=== PATIENT | male | born 1945 | race Caucasian/White ===

== ENCOUNTER 2018-06-14 13:23 | Emergency (ER) | payer MEDICARE, OTHER, SELFPAY ==
[2018-06-14 13:27] VITALS: BP 151/80; PULSE 64; RESP 16; TEMP 36.4; O2SAT 97; BMI 38.2
--- NOTE | 2018-06-14 15:54 | ED.SKABFB ---
HPI - Skin/Abscess/Foreign Bdy <ABDULKADIR Merchant - Last Filed: 06/14/18 22:09> General Chief complaint: Skin/Abscess/Foreign Body Stated complaint: STUNG RT HAND,SWELLING Time Seen by Provider: 06/14/18 16:06 Source: patient Mode of arrival: ambulatory Limitations: no limitations History of Present Illness HPI narrative: 73-year-old male here for complaint of swelling to his right hand. He states that he was stung by a wasp yesterday and has had increased swelling today. He states that after he was moving furniture today he noticed swelling to the right hand. He denies any other trauma to the right hand. No shortness of breath. No tightness of his throat. He denies any other injuries or concerns at this point. He denies any numbness to his fingers he states he has full range of motion of his fingers in hand. complaint: insect bite/sting Related Data Home Medications Medication Instructions Recorded Confirmed amlodipine 10 mg PO DAILY 06/14/18 06/14/18 furosemide 20 mg PO DAILY 06/14/18 06/14/18 insulin glargine [Lantus Solostar 1 dose SUB-Q DIRECTED 06/14/18 06/14/18 U-100 Insulin] losartan 100 mg PO DAILY 06/14/18 06/14/18 metformin 1 tab PO BID 06/14/18 06/14/18 metoprolol succinate [Toprol XL] 1 tab PO DAILY 06/14/18 06/14/18 potassium chloride [Klor-Con M20] 20 meq PO DAILY 06/14/18 06/14/18 pravastatin 20 mg PO DAILY 06/14/18 06/14/18 sildenafil [Viagra] 1 tab PO PRN PRN 06/14/18 06/14/18 Allergies Allergy/AdvReac Type Severity Reaction Status Date / Time influenza virus vaccine, Allergy Severe COUGHING, Unverified 02/20/18 12:29 specific FEVER 105+ [INFLUENZA VIRUS PER PATIENT VACC,SPECIFIC] Review of Systems <ABDULKADIR Merchant - Last Filed: 06/14/18 22:09> Constitutional Denies chills, Denies fever(s), Denies lethargy and Denies weakness Eyes Denies change in vision, Denies eye discharge, Denies irritation and Denies loss of vision ENT Ears, Nose, Mouth, and Throat: Denies change in voice, Denies neck pain and Denies sore throat Cardiovascular Denies chest pain, Denies irregular heart rhythm, Denies lightheadedness, Denies palpitations, Denies dyspnea, Denies dyspnea on exertion and Denies orthopnea Respiratory Denies cough, Denies dyspnea, Denies dyspnea on exertion and Denies wheezing Gastrointestinal Gastrointestinal: Denies abdominal pain, Denies change in bowel habits, Denies diarrhea, Denies nausea and Denies vomiting Genitourinary Denies hematuria, Denies flank pain, Denies urinary incontinence and Denies urinary urgency Musculoskeletal Denies neck pain Comments: Swelling to right hand status post insect sting Integumentary/Breasts Denies pruritus, Denies erythema, Denies rash and Denies wounds Neurologic Denies confusion, Denies loss of vision and Denies weakness Psychiatric Denies anxiety, Denies confusion, Denies depression, Denies homicidal ideation and Denies suicidal ideation Endocrine Denies palpitations Hematologic/Lymphatic Denies easy bruising Allergic/Immunologic Denies wheezing Exam <ABDULKADIR Merchant - Last Filed: 06/14/18 22:09> Initial Vital Signs Initial Vital Signs: Vital Signs Temperature 97.6 F 06/14/18 13:27 Pulse Rate 64 06/14/18 13:27 Respiratory Rate 16 06/14/18 13:27 Blood Pressure 151/80 H 06/14/18 13:27 Pulse Oximetry 97 06/14/18 13:27 Const General: cooperative and well developed Nutritional Appearance: well nourished Orientation: alert, awake, oriented x3 and not confused [facility] Mouth: oral mucosae normal and moist mucous membranes Eyes General: appearance normal, both eyes and all related structures Eyelids: eyelids normal Conjunctivae: conjunctivae normal Sclera: sclerae normal Pupils: PERRL EOM: EOM intact bilaterally Resp Effort & Inspection: normal respiratory effort, able to speak in complete sentences, no respiratory distress and no use of accessory muscles Auscultation: clear to auscultation bilaterally, no rales, no rhonchi and no wheezes Cardio Rate: regular rate Rhythm: regular rhythm Heart Sounds: no click, no gallops, no murmurs and no rubs Pulses: normal peripheral pulses Skin General: no rashes or lesions noted, No jaundice and No petechiae Neuro General: alert, oriented x3, gait normal and no focal motor deficits Speech: speech normal Extrem Other: Swelling into the right hand. No open lesions seen. No ecchymosis. Distal sensation is intact. Distal range of motion is intact. Distal cap refill less than 2 sec. Distal pulses intact <Hussein Hernandez MD - Last Filed: 06/17/18 08:38> Initial Vital Signs Initial Vital Signs: Vital Signs Temperature 97.6 F 06/14/18 13:27 Pulse Rate 64 06/14/18 13:27 Respiratory Rate 16 06/14/18 13:27 Blood Pressure 151/80 H 06/14/18 13:27 Pulse Oximetry 97 06/14/18 13:27 Course <ABDULKADIR Merchant - Last Filed: 06/14/18 22:09> Vital Signs - 8 hr 06/14/18 16:22 Pulse Rate 77 Respiratory Rate 14 Blood Pressure 147/71 H Pulse Oximetry 99 <Hussein Hernandez MD - Last Filed: 06/17/18 08:38> Vital Signs - 8 hr 06/14/18 16:22 Pulse Rate 77 Respiratory Rate 14 Blood Pressure 147/71 H Pulse Oximetry 99 MDM - Skin/Abscess/Foreign Bdy <ABDULKADIR Merchant - Last Filed: 06/14/18 22:09> MDM Narrative Medical decision making narrative: Swelling into the right hand secondary to insect sting toxins. Jose Miguel wrap to right hand for compression to help with swelling. Antihistamine daily patient states that he will black pickler 2nd generation sofu-lxh-txlyfao antihistamine such as Trisha or Claritin. [id number]-[id number] Aleve for anti-inflammatory and discomfort patient has at home. Patient is also encouraged to elevate the right hand to help with swelling. Follow up with primary care provider next week for re-evaluation. For any worsening symptoms return to the emergency room. Discharge Plan Departure Patient Disposition: Home, Self-Care Clinical Impression: Swelling of right hand, Accidental wasp sting Discharge Date/Time: 06/14/18 16:24 Interventions: ED Discharge Assessment Last Done: 06/14/18 16:22 Instructions: DI for Insect Bites and Stings Activity Restrictions/Additional Instructions: Swelling into the right hand secondary to insect sting toxins. Jose Miguel wrap to right hand for compression to help with swelling. Use antihistamine over the next several days daily as per instructions, black pickler 2nd generation [id number]-ubsdrno antihistamine such as Trisha or Claritin. Dkhm-uxe-liotjoh Aleve for anti-inflammatory and discomfort patient has at home. Elevate the right hand to help with swelling. Follow up with primary care provider next week for re-evaluation. For any worsening symptoms return to the emergency room. Prescriptions: No Action metoprolol succinate [Toprol XL] 100 mg tablet extended release 24 hr 1 tab PO DAILY RF: 0 metformin 850 mg tablet 1 tab PO BID RF: 0 sildenafil [Viagra] 25 mg tablet 1 tab PO PRN PRN (Reason: Sexual Activity) RF: 0 potassium chloride [Klor-Con M20] 20 mEq tablet,ER particles/crystals 20 meq PO DAILY RF: 0 amlodipine 10 mg tablet 10 mg PO DAILY RF: 0 pravastatin 20 mg tablet 20 mg PO DAILY RF: 0 furosemide 20 mg tablet 20 mg PO DAILY RF: 0 losartan 100 mg tablet 100 mg PO DAILY RF: 0 insulin glargine [Lantus Solostar U-100 Insulin] 100 unit/mL (3 mL) insulin pen 1 dose Sub-Q DIRECTED RF: 0 Referrals: Leatha Pinto MD [Primary Care Provider] - <Hussein Hernandez MD - Last Filed: 06/17/18 08:38> Sign Out Provider Sign Out Attestation: The PA/PATHOLOGY SUPERVISOR functioned independently for the care of this pt, I was available, but not asked to participate in care. I am unable to determine appropriateness of management without personally examining the pt.
--- NOTE | 2018-06-14 16:06 | ED_ITS ---
HPI - Skin/Abscess/Foreign Bdy <ABDULKADIR Merchant - Last Filed: 06/14/18 22:09> General Chief complaint: Skin/Abscess/Foreign Body Stated complaint: STUNG RT HAND,SWELLING Time Seen by Provider: 06/14/18 16:06 Source: patient Mode of arrival: ambulatory Limitations: no limitations History of Present Illness HPI narrative: 73-year-old male here for complaint of swelling to his right hand. He states that he was stung by a wasp yesterday and has had increased swelling today. He states that after he was moving furniture today he noticed swelling to the right hand. He denies any other trauma to the right hand. No shortness of breath. No tightness of his throat. He denies any other injuries or concerns at this point. He denies any numbness to his fingers he states he has full range of motion of his fingers in hand. complaint: insect bite/sting Related Data Home Medications Medication Instructions Recorded Confirmed amlodipine 10 mg PO DAILY 06/14/18 06/14/18 furosemide 20 mg PO DAILY 06/14/18 06/14/18 insulin glargine [Lantus Solostar 1 dose SUB-Q DIRECTED 06/14/18 06/14/18 U-100 Insulin] losartan 100 mg PO DAILY 06/14/18 06/14/18 metformin 1 tab PO BID 06/14/18 06/14/18 metoprolol succinate [Toprol XL] 1 tab PO DAILY 06/14/18 06/14/18 potassium chloride [Klor-Con M20] 20 meq PO DAILY 06/14/18 06/14/18 pravastatin 20 mg PO DAILY 06/14/18 06/14/18 sildenafil [Viagra] 1 tab PO PRN PRN 06/14/18 06/14/18 Allergies Allergy/AdvReac Type Severity Reaction Status Date / Time influenza virus vaccine, Allergy Severe COUGHING, Unverified 02/20/18 12:29 specific FEVER 105+ [INFLUENZA VIRUS PER PATIENT VACC,SPECIFIC] Review of Systems <ABDULKADIR Merchant - Last Filed: 06/14/18 22:09> Constitutional Denies chills, Denies fever(s), Denies lethargy and Denies weakness Eyes Denies change in vision, Denies eye discharge, Denies irritation and Denies loss of vision ENT Ears, Nose, Mouth, and Throat: Denies change in voice, Denies neck pain and Denies sore throat Cardiovascular Denies chest pain, Denies irregular heart rhythm, Denies lightheadedness, Denies palpitations, Denies dyspnea, Denies dyspnea on exertion and Denies orthopnea Respiratory Denies cough, Denies dyspnea, Denies dyspnea on exertion and Denies wheezing Gastrointestinal Gastrointestinal: Denies abdominal pain, Denies change in bowel habits, Denies diarrhea, Denies nausea and Denies vomiting Genitourinary Denies hematuria, Denies flank pain, Denies urinary incontinence and Denies urinary urgency Musculoskeletal Denies neck pain Comments: Swelling to right hand status post insect sting Integumentary/Breasts Denies pruritus, Denies erythema, Denies rash and Denies wounds Neurologic Denies confusion, Denies loss of vision and Denies weakness Psychiatric Denies anxiety, Denies confusion, Denies depression, Denies homicidal ideation and Denies suicidal ideation Endocrine Denies palpitations Hematologic/Lymphatic Denies easy bruising Allergic/Immunologic Denies wheezing Exam <ABDULKADIR Merchant - Last Filed: 06/14/18 22:09> Initial Vital Signs Initial Vital Signs: Vital Signs Temperature 97.6 F 06/14/18 13:27 Pulse Rate 64 06/14/18 13:27 Respiratory Rate 16 06/14/18 13:27 Blood Pressure 151/80 H 06/14/18 13:27 Pulse Oximetry 97 06/14/18 13:27 Const General: cooperative and well developed Nutritional Appearance: well nourished Orientation: alert, awake, oriented x3 and not confused [facility] Mouth: oral mucosae normal and moist mucous membranes Eyes General: appearance normal, both eyes and all related structures Eyelids: eyelids normal Conjunctivae: conjunctivae normal Sclera: sclerae normal Pupils: PERRL EOM: EOM intact bilaterally Resp Effort & Inspection: normal respiratory effort, able to speak in complete sentences, no respiratory distress and no use of accessory muscles Auscultation: clear to auscultation bilaterally, no rales, no rhonchi and no wheezes Cardio Rate: regular rate Rhythm: regular rhythm Heart Sounds: no click, no gallops, no murmurs and no rubs Pulses: normal peripheral pulses Skin General: no rashes or lesions noted, No jaundice and No petechiae Neuro General: alert, oriented x3, gait normal and no focal motor deficits Speech: speech normal Extrem Other: Swelling into the right hand. No open lesions seen. No ecchymosis. Distal sensation is intact. Distal range of motion is intact. Distal cap refill less than 2 sec. Distal pulses intact <Hussein Hernandez MD - Last Filed: 06/17/18 08:38> Initial Vital Signs Initial Vital Signs: Vital Signs Temperature 97.6 F 06/14/18 13:27 Pulse Rate 64 06/14/18 13:27 Respiratory Rate 16 06/14/18 13:27 Blood Pressure 151/80 H 06/14/18 13:27 Pulse Oximetry 97 06/14/18 13:27 Course <ABDULKADIR Merchant - Last Filed: 06/14/18 22:09> Vital Signs - 8 hr 06/14/18 16:22 Pulse Rate 77 Respiratory Rate 14 Blood Pressure 147/71 H Pulse Oximetry 99 <Hussein Hernandez MD - Last Filed: 06/17/18 08:38> Vital Signs - 8 hr 06/14/18 16:22 Pulse Rate 77 Respiratory Rate 14 Blood Pressure 147/71 H Pulse Oximetry 99 MDM - Skin/Abscess/Foreign Bdy <ABDULKADIR Merchant - Last Filed: 06/14/18 22:09> MDM Narrative Medical decision making narrative: Swelling into the right hand secondary to insect sting toxins. Jose Miguel wrap to right hand for compression to help with swelling. Antihistamine daily patient states that he will director of academic support 2nd generation ufhv-ohj-mpydpey antihistamine such as Trisha or Claritin. Over-the -counter Aleve for anti-inflammatory and discomfort patient has at home. Patient is also encouraged to elevate the right hand to help with swelling. Follow up with primary care provider next week for re-evaluation. For any worsening symptoms return to the emergency room. Discharge Plan Departure Patient Disposition: Home, Self-Care Clinical Impression: Swelling of right hand, Accidental wasp sting Discharge Date/Time: 06/14/18 16:24 Interventions: ED Discharge Assessment Last Done: 06/14/18 16:22 Instructions: DI for Insect Bites and Stings Activity Restrictions/Additional Instructions: Swelling into the right hand secondary to insect sting toxins. Jose Miguel wrap to right hand for compression to help with swelling. Use antihistamine over the next several days daily as per instructions, director of academic support 2nd generation over-the- counter antihistamine such as Trisha or Claritin. [id number]-gjp-[id number] Aleve for anti-inflammatory and discomfort patient has at home. Elevate the right hand to help with swelling. Follow up with primary care provider next week for re- evaluation. For any worsening symptoms return to the emergency room. Prescriptions: No Action metoprolol succinate [Toprol XL] 100 mg tablet extended release 24 hr 1 tab PO DAILY RF: 0 metformin 850 mg tablet 1 tab PO BID RF: 0 sildenafil [Viagra] 25 mg tablet 1 tab PO PRN PRN (Reason: Sexual Activity) RF: 0 potassium chloride [Klor-Con M20] 20 mEq tablet,ER particles/crystals 20 meq PO DAILY RF: 0 amlodipine 10 mg tablet 10 mg PO DAILY RF: 0 pravastatin 20 mg tablet 20 mg PO DAILY RF: 0 furosemide 20 mg tablet 20 mg PO DAILY RF: 0 losartan 100 mg tablet 100 mg PO DAILY RF: 0 insulin glargine [Lantus Solostar U-100 Insulin] 100 unit/mL (3 mL) insulin pen 1 dose Sub-Q DIRECTED RF: 0 Referrals: Leatha Pinto MD [Primary Care Provider] - <Hussein Hernandez MD - Last Filed: 06/17/18 08:38> Sign Out Provider Sign Out Attestation: The PA/POWER GENERATING PLANT OPERATOR functioned independently for the care of this pt, I was available, but not asked to participate in care. I am unable to determine appropriateness of management without personally examining the pt.
[2018-06-14 16:22] VITALS: BP 147/71; PULSE 77; RESP 14; O2SAT 99
--- NOTE | 2018-06-14 16:23 | PC.NURSE ---
pt c/o insect bite to hand. hand red and swollen, painful to touch. moving without difficulty.
== END 2018-06-14 16:24 | disposition home or self-care (01) ==
PROVIDERS: Emergency Provider Nurse Practitioner Family; Family Provider Internal Medicine; PCP Internal Medicine
DX: M79.89 Other specified soft tissue disorders (principal); T63.461A Toxic effect of venom of wasps, accidental (unintentional), initial encounter
CPT/HCPCS: 99282

== ENCOUNTER → 2018-09-25 14:20 | Outpatient (CLI) | payer MEDICARE, OTHER, SELFPAY | PROVIDERS: PCP Internal Medicine; Visit Provider Internal Medicine Gastroenterology | DX: R19.7 Diarrhea, unspecified (principal) | CPT/HCPCS: 87177; 87493 ==

== ENCOUNTER → 2018-12-26 07:59 | Outpatient (CLI) | payer MEDICARE, OTHER, SELFPAY ==
[2018-12-26 08:42] LABS: Hemoglobin A1C% w Est Avg Glu 5.9 % (4.0-6.0)
[2018-12-26 09:32] LABS: Alanine Aminotransferase 69 IU/L (21-72); Aspartate Aminotransferase 52 IU/L (17-59); BUN Creatinine Ratio 22.2 (6-22); Blood Urea Nitrogen 20 mg/dL (9-20); Calcium 9.5 mg/dL (8.4-10.2); Carbon Dioxide 29 mmol/L (22-32); Chloride 103 mmol/L (98-107); Cholesterol 151 mg/dL (140-199); Estimated Glomerular Filt Rate > 60.0 mL/min (>60); Glucose 110 mg/dL (80-110); HDL Cholesterol 40 mg/dL (40-60); HEMOLYSIS < 15 (0-50); LDL Cholesterol Calculated 77 mg/dL (<100); Potassium 4.5 mmol/L (3.4-5.1); Sodium 143 mmol/L (137-145); Triglycerides 172 mg/dL (35-150)
== END ==
PROVIDERS: PCP Internal Medicine; Visit Provider Internal Medicine
DX: I10 Essential (primary) hypertension (principal); E78.00 Pure hypercholesterolemia, unspecified; E11.9 Type 2 diabetes mellitus without complications
CPT/HCPCS: 36415; 80048; 80061; 83036; 84450; 84460

== ENCOUNTER → 2019-08-07 07:41 | Outpatient (CLI) | payer MEDICARE, OTHER, SELFPAY ==
[2019-08-07 09:18] LABS: Hemoglobin A1C% w Est Avg Glu 5.9 % (4.0-6.0)
[2019-08-07 09:27] LABS: Alanine Aminotransferase 59 IU/L (21-72); Aspartate Aminotransferase 61 IU/L (17-59); Blood Urea Nitrogen 14 mg/dL (9-20); Calcium 9.3 mg/dL (8.4-10.2); Carbon Dioxide 27 mmol/L (22-32); Chloride 106 mmol/L (98-107); Cholesterol 148 mg/dL (140-199); Estimated Glomerular Filt Rate > 60.0 mL/min (>60); Glucose 101 mg/dL (80-110); HDL Cholesterol 40 mg/dL (40-60); HEMOLYSIS < 15 (0-50); LDL Cholesterol Calculated 71 mg/dL (<100); Potassium 3.9 mmol/L (3.4-5.1); Sodium 144 mmol/L (137-145); Triglycerides 184 mg/dL (35-150)
== END ==
PROVIDERS: PCP Internal Medicine; Visit Provider Internal Medicine
DX: I10 Essential (primary) hypertension (principal); E78.5 Hyperlipidemia, unspecified; E11.9 Type 2 diabetes mellitus without complications
CPT/HCPCS: 36415; 80048; 80061; 83036; 84450; 84460

== ENCOUNTER → 2020-07-09 09:05 | Outpatient (CLI) | payer MEDICARE, OTHER, SELFPAY ==
[2020-07-09 10:15] LABS: Hemoglobin A1C% w Est Avg Glu 6.9 % (4.0-6.0)
[2020-07-09 10:25] LABS: Alanine Aminotransferase 53 IU/L (<50); Albumin 4.4 g/dL (3.5-5.0); Albumin Globulin Ratio 1.4 (1.0-2.8); Alkaline Phosphatase 80 U/L (38-126); Aspartate Aminotransferase 50 IU/L (17-59); Bilirubin Total 0.7 mg/dL (0.2-1.3); Blood Urea Nitrogen 17 mg/dL (9-20); Calcium 9.3 mg/dL (8.4-10.2); Carbon Dioxide 22 mmol/L (22-32); Chloride 109 mmol/L (98-107); Cholesterol 160 mg/dL (140-199); Estimated Glomerular Filt Rate > 60.0 mL/min (>60); Globulin 3.1 g/dL (1.7-4.1); Glucose 147 mg/dL (80-110); HDL Cholesterol 42 mg/dL (40-60); HEMOLYSIS < 15 (0-50); LDL Cholesterol Calculated 77 mg/dL (<100); Potassium 4.1 mmol/L (3.4-5.1); Sodium 140 mmol/L (137-145); Total Protein 7.5 g/dL (6.3-8.2); Triglycerides 205 mg/dL (35-150)
== END ==
PROVIDERS: PCP Internal Medicine; Referring Provider Internal Medicine; Visit Provider Internal Medicine
DX: E78.00 Pure hypercholesterolemia, unspecified (principal); I10 Essential (primary) hypertension; E11.9 Type 2 diabetes mellitus without complications
CPT/HCPCS: 36415; 80053; 80061; 83036

== ENCOUNTER → 2020-12-20 08:36 | Outpatient (CLI) | payer MEDICARE, OTHER, SELFPAY ==
[2020-12-20 09:40] LABS: Hemoglobin A1C% w Est Avg Glu 7.5 % (4.0-6.0)
[2020-12-20 09:57] LABS: Alanine Aminotransferase 64 IU/L (<50); Albumin 4.5 g/dL (3.5-5.0); Albumin Globulin Ratio 1.3 (1.0-2.8); Alkaline Phosphatase 81 U/L (38-126); Aspartate Aminotransferase 61 IU/L (17-59); BUN Creatinine Ratio 18.2 (6-22); Bilirubin Total 0.5 mg/dL (0.2-1.3); Blood Urea Nitrogen 14 mg/dL (9-20); Calcium 9.2 mg/dL (8.4-10.2); Carbon Dioxide 29 mmol/L (22-32); Chloride 107 mmol/L (98-107); Cholesterol 150 mg/dL (140-199); Estimated Glomerular Filt Rate > 60.0 mL/min (>60); Globulin 3.6 g/dL (1.7-4.1); Glucose 145 mg/dL (80-110); HDL Cholesterol 42 mg/dL (40-60); HEMOLYSIS < 15 (0-50); LDL Cholesterol Calculated 77 mg/dL (<100); Sodium 141 mmol/L (137-145); Total Protein 8.1 g/dL (6.3-8.2); Triglycerides 156 mg/dL (35-150)
[2020-12-20 11:50] LABS: Creatinine Urine Random 69.4 mg/dL
[2020-12-20 11:54] LABS: Microalbumi Creatinin Ratio Ur 69.1 ug/mg CR (<30); Microalbumin Urine Random 4.8 mg/dL (0-1.6)
== END ==
PROVIDERS: PCP Internal Medicine; Referring Provider Internal Medicine; Visit Provider Internal Medicine
DX: I10 Essential (primary) hypertension (principal); E78.00 Pure hypercholesterolemia, unspecified; E11.9 Type 2 diabetes mellitus without complications
CPT/HCPCS: 36415; 80053; 80061; 82043; 82570; 83036

== ENCOUNTER 2021-07-22 18:57 | Emergency (ER) | payer MEDICARE, OTHER, SELFPAY ==
[2021-07-22 19:08] VITALS: BP 179/85; PULSE 69; RESP 18; TEMP 37.1; O2SAT 96; BMI 38.2
--- NOTE | 2021-07-22 19:41 | ED.WOUNDLAC ---
HPI - Wound/Laceration <ABDULKADIR Lyn - Last Filed: 07/22/21 19:54> General Chief Complaint: Wound/Laceration Stated Complaint: Left Pointer Finger Laceration, On Blood Thinners Time Seen by Provider: 07/22/21 19:05 Source: patient Mode of arrival: Ambulatory Limitations: no limitations History of Present Illness HPI narrative: Mr. Holbrook is a 76-year-old male who presents to the emergency department with a left finger laceration that occurred while pruning a tree. He reports that his put a pressure dressing on his finger because it would not stop bleeding. He reports that the network control supervisor skipped his nail and avulsed the skin right below it, and he does not think it is very deep. He is not on any anticoagulants, he only takes a baby aspirin. He is able to move his finger, he denies any sensation changes. Related Data Home Medications Medication Instructions Recorded Confirmed amlodipine 10 mg tablet 10 mg PO DAILY 06/14/18 06/14/18 furosemide 20 mg tablet 20 mg PO DAILY 06/14/18 06/14/18 insulin glargine 100 unit/mL (3 1 dose SUB-Q DIRECTED 06/14/18 06/14/18 mL) subcutaneous pen losartan 100 mg tablet 100 mg PO DAILY 06/14/18 06/14/18 metformin 850 mg tablet 1 tab PO BID 06/14/18 06/14/18 metoprolol succinate 100 mg 1 tab PO DAILY 06/14/18 06/14/18 tablet,extended release 24 hr potassium chloride 20 mEq 20 meq PO DAILY 06/14/18 06/14/18 tablet,extended release(part/cryst) pravastatin 20 mg tablet 20 mg PO DAILY 06/14/18 06/14/18 sildenafil 25 mg tablet 1 tab PO PRN PRN 06/14/18 06/14/18 Allergies Allergy/AdvReac Type Severity Reaction Status Date / Time influenza virus vaccine, Allergy Severe COUGHING, Verified 07/22/21 19:08 specific FEVER 105+ [INFLUENZA VIRUS PER PATIENT VACC,SPECIFIC] Review of Systems <ABDULKADIR Lyn - Last Filed: 07/22/21 19:54> Review of Systems Narrative: General: denies fever, chills Head/Neck: denies headache, neck pain Eyes: denies visual changes, eye pain Cardio: denies chest pain, palpitations Respiratory: denies shortness of breath, cough GI: denies abdominal pain, nausea, vomiting, or diarrhea : denies dysuria, hematuria MSK: denies joint pain, muscle weakness Skin: denies rash, itching, left index finger w/laceration Neuro: denies numbness, tingling Patient History <ABDULKADIR Lyn - Last Filed: 07/22/21 19:54> Medical History COPD exacerbation Diabetes Hyperlipidemia Hypertension Social History Smoking Status: Never smoker Smoking Status: Never smoker Substance Use Type: does not use Exam <ABDULKADIR Lyn - Last Filed: 07/22/21 19:54> Narrative Exam Narrative: Independently reviewed vitals signs and nursing notes. General: Awake, alert, nontoxic, no cardiorespiratory distress Head/Neck: Atraumatic, neck full range of motion Eyes: EOMI, conjunctiva normal Nose: nares patent, no rhinorrhea Mouth/Throat: moist mucus membranes, posterior pharynx normal, no oral lesions Cardio: Regular rate and rhythm, no peripheral edema Respiratory: respirations unlabored without wheezing, stridor, or rales. No retractions. GI: Abdomen soft, nontender MSK: Moves all extremities, neurovascularly intact Skin: Normal capillary refill, no rash, left index finger with 1 cm x 2 mm avulsion, hemostasis achieved with pressure dressing, sensation and motor intact. Neuro: Normal speech and cognition, normal gait Initial Vital Signs Initial Vital Signs: Vital Signs Temperature 98.8 F 07/22/21 19:08 Pulse Rate 69 07/22/21 19:08 Respiratory Rate 18 07/22/21 19:08 Blood Pressure 179/85 H 07/22/21 19:08 Pulse Oximetry 96 07/22/21 19:08 <Elise Stark DO - Last Filed: 07/23/21 05:31> Initial Vital Signs Initial Vital Signs: Vital Signs Temperature 98.8 F 07/22/21 19:08 Pulse Rate 69 07/22/21 19:08 Respiratory Rate 18 07/22/21 19:08 Blood Pressure 179/85 H 07/22/21 19:08 Pulse Oximetry 96 07/22/21 19:08 Procedures <ABDULKADIR Lyn - Last Filed: 07/22/21 19:54> Laceration Repair Laceration 1: Site: other (index finger) Side (If applicable): left Size (cm): 1 Description: linear Depth: simple, single layer Pre-repair: wound explored and irrigated extensively Skin layer closed with: steri-strips (Hemostasis achieved prior to Steri-Strip, 1 1 cm Steri-Strip applied, wrapped with gauze and Coban. No bleeding) Course <ABDULKADIR Lyn - Last Filed: 07/22/21 19:54> Vital Signs Vital signs: Vital Signs - 8 hr 07/22/21 19:08 Temperature 98.8 F Pulse Rate 69 Respiratory Rate 18 Blood Pressure 179/85 H Pulse Oximetry 96 <Elise Stark DO - Last Filed: 07/23/21 05:31> Vital Signs Vital signs: Vital Signs - 8 hr 07/22/21 19:08 Temperature 98.8 F Pulse Rate 69 Respiratory Rate 18 Blood Pressure 179/85 H Pulse Oximetry 96 MDM - Wound/Laceration <ABDULKADIR Lyn - Last Filed: 07/22/21 19:54> [facility] Narrative Medical decision making narrative: 76-year-old male presents with left index finger skin avulsion on the dorsal aspect near the base of his nail. The wound was cleaned, hemostasis achieved, and a Steri-Strip was applied over the skin flap, wound margins approximated. Gauze and Coban was applied. Vital signs were within normal limits today. No concern for infection at this time. Patient was given instructions on wound care, and reasons to return to the emergency department. He was instructed to follow-up with his PCP or return to the ED if his finger starts bleeding again and he is unable to make it stop. Patient is appropriate and amenable to discharge home. Vital signs are stable on repeat examination is unremarkable. Patient has been informed of results. Patient has been given strict return to ER precautions for any new or worsening symptoms. Patient understands to follow up closely with outpatient providers as instructed. Patient understands plan and agrees to discharge home. All questions and concerns answered at this time. Discharge Plan Departure Patient Disposition: Home Clinical Impression: Avulsion of skin of index finger Qualifiers: Encounter type: initial encounter Qualified Code(s): S61.208A - Unspecified open wound of other finger without damage to nail, initial encounter Instructions: DI for Laceration Repair-Skin Closure Strips Activity Restrictions/Additional Instructions: *You have been diagnosed with a skin avulsion of your left index finger. Keep dressing on for the next 24 hours unless it becomes soaked with blood. If so, have Billie re-dress your finger as she did when you came in, that worked really well. I gave you enough supplies to change the dressing couple times. If it does not stop bleeding, put a pressure dressing on with the stretchy material, and come back to the emergency department or see your PCP. Keep the wound dry, put it in a plastic bag if showering, and keep it clean. I look forward to seeing you around [email or web address], thanks for all you are doing in the community. *What to do: *Please continue to take your regular medications as directed. [ ] New medication prescriptions sent to your pharmacy: [ ] [ ] New medication written as a paper prescription [x] No new medications given *Please follow up with your primary care provider in 2-3 days, call for an appointment. Let them know you were seen in the Emergency Department and that we ask that you be seen in follow up. We will electronically transmit a record of today's note if your PCP is in our system *If you do not have a primary care provider please contact the [facility] Resource line at [phone]. They will ask some questions about your medical history and help get you set up with a doctor in the community. *Return to Emergency Department if you should have any new, worsening or concerning symptoms, such as [fever greater than 101F, chills, worsening pain, persistent vomiting or other bothersome symptoms] Prescriptions: No Action metoprolol succinate [Toprol XL] 100 mg tablet extended release 24 hr 1 tab PO DAILY RF: 0 metformin 850 mg tablet 1 tab PO BID RF: 0 sildenafil [Viagra] 25 mg tablet 1 tab PO PRN PRN (Reason: Sexual Activity) RF: 0 potassium chloride [Klor-Con M20] 20 mEq tablet,ER particles/crystals 20 meq PO DAILY RF: 0 amlodipine 10 mg tablet 10 mg PO DAILY RF: 0 pravastatin 20 mg tablet 20 mg PO DAILY RF: 0 furosemide 20 mg tablet 20 mg PO DAILY RF: 0 losartan 100 mg tablet 100 mg PO DAILY RF: 0 insulin glargine [Lantus Solostar U-100 Insulin] 100 unit/mL (3 mL) insulin pen 1 dose Sub-Q DIRECTED RF: 0 Referrals: Leatha Pinto MD [Primary Care Provider] - <Elise Stark DO - Last Filed: 07/23/21 05:31> Cosign ED Attending Cosignature Attestation: I was immediately available in the department for consultation. Documentation has been reviewed. I agree with assessment and plan.
[2021-07-22 19:46] VITALS: BP 158/78; PULSE 70; RESP 16
== END 2021-07-22 19:48 | disposition home or self-care (01) ==
PROVIDERS: Emergency Provider Nurse Practitioner Critical Care Medicine; PCP Internal Medicine
DX: S61.208A Unspecified open wound of other finger without damage to nail, initial encounter (principal); W45.8XXA Other foreign body or object entering through skin, initial encounter; Z79.01 Long term (current) use of anticoagulants
CPT/HCPCS: 99281

== ENCOUNTER → 2021-10-05 09:30 | Outpatient (CLI) | payer MEDICARE, OTHER, SELFPAY ==
[2021-10-05 11:36] LABS: Hemoglobin A1C% w Est Avg Glu 6.8 % (4.0-6.0)
[2021-10-05 11:44] LABS: Alanine Aminotransferase 44 IU/L (<50); Albumin 4.7 g/dL (3.5-5.0); Albumin Globulin Ratio 1.6 (1.0-2.8); Alkaline Phosphatase 74 U/L (38-126); Aspartate Aminotransferase 49 IU/L (17-59); BUN Creatinine Ratio 17.1 (6-22); Bilirubin Total 0.9 mg/dL (0.2-1.3); Blood Urea Nitrogen 14 mg/dL (9-20); Calcium 9.4 mg/dL (8.4-10.2); Carbon Dioxide 29 mmol/L (22-32); Chloride 104 mmol/L (98-107); Cholesterol 183 mg/dL (140-199); Estimated Glomerular Filt Rate > 60.0 mL/min (>60); Glucose 127 mg/dL (80-110); HDL Cholesterol 42 mg/dL (40-60); HEMOLYSIS < 15 (0-50); LDL Cholesterol Calculated 103 mg/dL (<100); Potassium 4.1 mmol/L (3.4-5.1); Sodium 144 mmol/L (137-145); Total Protein 7.7 g/dL (6.3-8.2); Triglycerides 189 mg/dL (35-150)
[2021-10-05 12:23] LABS: Creatinine Urine Random 78.8 mg/dL
[2021-10-05 12:27] LABS: Microalbumi Creatinin Ratio Ur 44.4 ug/mg CR (<30); Microalbumin Urine Random 3.5 mg/dL (0-1.6)
[2021-10-05 19:03] LABS: Hep C Virus Ab w/Reflex Quant NEGATIVE s/c (NEGATIVE)
== END ==
PROVIDERS: PCP Internal Medicine; Referring Provider Internal Medicine; Visit Provider Internal Medicine
DX: E11.9 Type 2 diabetes mellitus without complications (principal); E11.29 Type 2 diabetes mellitus with other diabetic kidney complication; E78.5 Hyperlipidemia, unspecified; Z11.59 Encounter for screening for other viral diseases
CPT/HCPCS: 36415; 80053; 80061; 82043; 82570; 83036; 86803

== ENCOUNTER → 2022-12-06 13:36 | Outpatient (CLI) | payer MEDICARE, OTHER, SELFPAY ==
[2022-12-06 14:29] LABS: Hemoglobin A1C% w Est Avg Glu 7.3 % (4.0-6.0)
[2022-12-06 14:39] LABS: Alanine Aminotransferase 49 IU/L (<50); Albumin 4.8 g/dL (3.5-5.0); Albumin Globulin Ratio 1.3 (1.0-2.8); Alkaline Phosphatase 94 U/L (38-126); Aspartate Aminotransferase 51 IU/L (17-59); BUN Creatinine Ratio 25.3 (6-22); Bilirubin Total 0.9 mg/dL (0.2-1.3); Blood Urea Nitrogen 19 mg/dL (9-20); Calcium 9.7 mg/dL (8.4-10.2); Carbon Dioxide 27 mmol/L (22-32); Chloride 105 mmol/L (98-107); Cholesterol 188 mg/dL (140-199); Estimated Glomerular Filt Rate > 60 mL/min (>60); Globulin 3.6 g/dL (1.7-4.1); Glucose 138 mg/dL (80-110); HDL Cholesterol 43 mg/dL (40-60); HEMOLYSIS 21 (0-50); LDL Cholesterol Calculated 88 mg/dL (<100); Potassium 4.3 mmol/L (3.4-5.1); Sodium 143 mmol/L (137-145); Total Protein 8.4 g/dL (6.3-8.2); Triglycerides 287 mg/dL (35-150)
[2022-12-06 15:32] LABS: Microalbumin Urine Random 2.6 mg/dL (0-1.6)
[2022-12-06 15:36] LABS: Creatinine Urine Random 42.4 mg/dL; Microalbumi Creatinin Ratio Ur 61.3 ug/mg CR (<30)
== END ==
PROVIDERS: PCP Family Medicine; Referring Provider Family Medicine; Visit Provider Family Medicine
DX: E11.9 Type 2 diabetes mellitus without complications (principal); E78.5 Hyperlipidemia, unspecified; I10 Essential (primary) hypertension
CPT/HCPCS: 36415; 80053; 80061; 82043; 82570; 83036

== ENCOUNTER → 2023-03-01 07:31 | Outpatient (CLI) | payer MEDICARE, OTHER, SELFPAY ==
[2023-03-01 08:41] LABS: BUN Creatinine Ratio 35.2 (6-22); Blood Urea Nitrogen 31 mg/dL (9-20); Calcium 9.5 mg/dL (8.4-10.2); Carbon Dioxide 28 mmol/L (22-32); Chloride 104 mmol/L (98-107); Estimated Glomerular Filt Rate > 60 mL/min (>60); Glucose 219 mg/dL (80-110); HEMOLYSIS < 15 (0-50); Potassium 4.6 mmol/L (3.4-5.1); Sodium 141 mmol/L (137-145)
[2023-03-02 06:10] LABS: Labcorp Hemoglobin (Hb) A1c 9.3 % (4.8-5.6)
== END ==
PROVIDERS: PCP Family Medicine; Referring Provider Family Medicine; Visit Provider Family Medicine
DX: I10 Essential (primary) hypertension (principal); Z79.4 Long term (current) use of insulin; E11.9 Type 2 diabetes mellitus without complications
CPT/HCPCS: 36415; 80048; 83036

== ENCOUNTER → 2023-10-09 16:17 | Outpatient (CLI) | payer MEDICARE, OTHER, SELFPAY ==
[2023-10-09 18:29] LABS: Hemoglobin A1C% w Est Avg Glu 8.2 % (4.0-6.0)
== END ==
PROVIDERS: PCP Family Medicine; Referring Provider Family Medicine; Visit Provider Family Medicine
DX: E11.9 Type 2 diabetes mellitus without complications (principal); Z79.4 Long term (current) use of insulin
CPT/HCPCS: 36415; 83036

== ENCOUNTER → 2024-01-07 11:50 | Outpatient (CLI) | payer MEDICARE, OTHER, SELFPAY ==
[2024-01-07 13:20] LABS: Hemoglobin A1C% w Est Avg Glu 7.4 % (4.0-6.0)
[2024-01-07 13:28] LABS: Alanine Aminotransferase 43 IU/L (<50); Albumin 4.6 g/dL (3.5-5.0); Albumin Globulin Ratio 1.4 (1.0-2.8); Alkaline Phosphatase 74 U/L (38-126); Aspartate Aminotransferase 47 IU/L (17-59); BUN Creatinine Ratio 26.8 (6-22); Blood Urea Nitrogen 34 mg/dL (9-20); Calcium 10.5 mg/dL (8.4-10.2); Carbon Dioxide 28 mmol/L (22-32); Chloride 98 mmol/L (98-107); Cholesterol 140 mg/dL (140-199); Estimated Glomerular Filt Rate 58 mL/min (>60); Globulin 3.4 g/dL (1.7-4.1); Glucose 187 mg/dL (80-110); HDL Cholesterol 35 mg/dL (40-60); HEMOLYSIS < 15 (0-50); LDL Cholesterol Calculated 50 mg/dL (<100); Potassium 3.4 mmol/L (3.4-5.1); Sodium 139 mmol/L (137-145); Triglycerides 274 mg/dL (35-150)
== END ==
PROVIDERS: PCP Family Medicine; Referring Provider Family Medicine; Visit Provider Family Medicine
DX: Z00.00 Encounter for general adult medical examination without abnormal findings (principal); E11.9 Type 2 diabetes mellitus without complications; E78.5 Hyperlipidemia, unspecified; Z79.4 Long term (current) use of insulin; R80.9 Proteinuria, unspecified; E11.29 Type 2 diabetes mellitus with other diabetic kidney complication
CPT/HCPCS: 36415; 80053; 80061; 83036

== ENCOUNTER → 2024-05-29 08:30 | Outpatient (CLI) | payer MEDICARE, OTHER, SELFPAY ==
[2024-05-29 11:07] LABS: BUN Creatinine Ratio 22.9 (6-22); Blood Urea Nitrogen 25 mg/dL (9-20); Calcium 9.4 mg/dL (8.4-10.2); Carbon Dioxide 26 mmol/L (22-32); Chloride 104 mmol/L (98-107); Estimated Glomerular Filt Rate > 60 mL/min (>60); Glucose 255 mg/dL (80-110); HEMOLYSIS < 15 (0-50); Potassium 3.8 mmol/L (3.4-5.1); Sodium 140 mmol/L (137-145)
[2024-05-29 11:26] LABS: Vitamin D 25 Hydroxy (D3) 48.5 ng/mL (30.0-100.0)
[2024-05-29 12:00] LABS: Hemoglobin A1C% w Est Avg Glu 7.3 % (4.0-6.0)
[2024-05-30 09:44] LABS: Parathyroid Hormone Int 38 pg/mL (15-65)
[2024-05-30 19:08] LABS: Ionized Calcium 4.8 mg/dL (4.5-5.6)
[2024-05-30 23:08] LABS: Free Kappa Lt Chains, Serum 30.8 mg/L (3.3-19.4); Free Lambda Lt Chains,Serum 17.2 mg/L (5.7-26.3)
== END ==
PROVIDERS: PCP Family Medicine; Referring Provider Family Medicine; Visit Provider Family Medicine
DX: E11.65 Type 2 diabetes mellitus with hyperglycemia (principal); Z79.4 Long term (current) use of insulin; E83.52 Hypercalcemia
CPT/HCPCS: 80048; 82306; 82330; 83036; 83883; 83970; 84155; 84165

== ENCOUNTER → 2024-09-15 15:02 | Outpatient (CLI) | payer MEDICARE, OTHER, SELFPAY ==
[2024-09-15 16:36] LABS: Hemoglobin A1C% w Est Avg Glu 7.3 % (4.0-6.0)
[2024-09-15 17:13] LABS: BUN Creatinine Ratio 15.9 (6-22); Blood Urea Nitrogen 20 mg/dL (9-20); Calcium 9.1 mg/dL (8.4-10.2); Carbon Dioxide 26 mmol/L (22-32); Chloride 105 mmol/L (98-107); Estimated Glomerular Filt Rate 58 mL/min (>60); Glucose 170 mg/dL (80-110); HEMOLYSIS < 15 (0-50); Potassium 3.2 mmol/L (3.4-5.1); Sodium 140 mmol/L (137-145)
== END ==
PROVIDERS: PCP Family Medicine; Referring Provider Family Medicine; Visit Provider Family Medicine
DX: E11.65 Type 2 diabetes mellitus with hyperglycemia (principal); Z79.4 Long term (current) use of insulin; I10 Essential (primary) hypertension; E78.49 Other hyperlipidemia
CPT/HCPCS: 36415; 80048; 83036

== ENCOUNTER → 2024-12-29 10:06 | Outpatient (CLI) | payer MEDICARE, OTHER, SELFPAY ==
[2024-12-29 11:17] LABS: Hemoglobin A1C% w Est Avg Glu 6.9 % (4.0-6.0)
[2024-12-29 11:32] LABS: Blood Urea Nitrogen 16 mg/dL (9-20); Calcium 9.6 mg/dL (8.4-10.2); Carbon Dioxide 29 mmol/L (22-32); Chloride 104 mmol/L (98-107); Cholesterol 145 mg/dL (140-199); Estimated Glomerular Filt Rate > 60 mL/min (>60); Glucose 139 mg/dL (80-110); HDL Cholesterol 36 mg/dL (40-60); HEMOLYSIS < 15 (0-50); LDL Cholesterol Calculated 50 mg/dL (<100); Sodium 143 mmol/L (137-145); Triglycerides 295 mg/dL (35-150)
== END ==
PROVIDERS: PCP Family Medicine; Referring Provider Family Medicine; Visit Provider Family Medicine
DX: E11.65 Type 2 diabetes mellitus with hyperglycemia (principal); Z79.4 Long term (current) use of insulin; E87.6 Hypokalemia; E11.29 Type 2 diabetes mellitus with other diabetic kidney complication; E78.49 Other hyperlipidemia; R80.9 Proteinuria, unspecified
CPT/HCPCS: 36415; 80048; 80061; 83036

== ENCOUNTER → 2025-06-17 14:08 | Outpatient (CLI) | payer MEDICARE, OTHER, SELFPAY ==
[2025-06-17 14:54] LABS: Hematocrit 41.0 % (41-53); Hemoglobin 14.4 g/dL (13.5-17.5); Mean Corpuscular HGB Conc 35.3 % (30-36); Mean Corpuscular Hemoglobin 31.0 PG (26-34); Mean Corpuscular Volume 87.9 fL (80-100); Platelet Count 146 X10^3/uL (150-400)
[2025-06-17 15:13] LABS: Hemoglobin A1C% w Est Avg Glu 7.1 % (4.0-6.0)
[2025-06-17 15:23] LABS: Alanine Aminotransferase 46 IU/L (<50); Albumin 4.5 g/dL (3.5-5.0); Albumin Globulin Ratio 1.7 (1.0-2.8); Alkaline Phosphatase 76 U/L (38-126); Blood Urea Nitrogen 20 mg/dL (9-20); Calcium 9.6 mg/dL (8.4-10.2); Carbon Dioxide 28 mmol/L (22-32); Chloride 102 mmol/L (98-107); Estimated Glomerular Filt Rate > 60 mL/min (>60); Globulin 2.7 g/dL (1.7-4.1); Glucose 213 mg/dL (70-99); HEMOLYSIS < 15 (0-50); Potassium 3.8 mmol/L (3.4-5.1); Sodium 143 mmol/L (137-145); Total Protein 7.2 g/dL (6.3-8.2)
[2025-06-17 15:35] LABS: Appearance Urine UA CLEAR; Bilirubin Urine UA NEGATIVE (NEGATIVE); Color Urine UA YELLOW; Glucose Urine UA 3+ g/dL (Negative); Ketones Urine UA NEGATIVE (NEGATIVE); Leukocyte Esterase Urine UA NEGATIVE (NEGATIVE); Nitrite Urine UA NEGATIVE (Negative); Occult Blood Urine UA NEGATIVE (Negative); Protein Urine UA NEGATIVE (Negative); Specific Gravity Urine UA 1.010 (1.000-1.035); Urobilinogen Urine UA 0.2 E.U./dL (0.2); pH Urine UA 5.5 (4.5-8.0)
[2025-06-17 15:55] LABS: TSH w/ Reflex to FT4 1.64 uIU/mL (0.47-4.68)
[2025-06-17 16:07] LABS: Culture Indicated Urine Cult Not Indicated
== END ==
PROVIDERS: PCP Family Medicine; Referring Provider Family Medicine; Visit Provider Family Medicine
DX: E11.65 Type 2 diabetes mellitus with hyperglycemia (principal); Z79.4 Long term (current) use of insulin; R53.82 Chronic fatigue, unspecified; I49.9 Cardiac arrhythmia, unspecified; I10 Essential (primary) hypertension
CPT/HCPCS: 36415; 80053; 81001; 83036; 84443; 85027

== ENCOUNTER → 2025-10-30 09:38 | Outpatient (CLI) | payer MEDICARE, OTHER, SELFPAY ==
[2025-10-30 10:37] LABS: Hemoglobin A1C% w Est Avg Glu 6.9 % (4.0-6.0)
[2025-10-30 10:58] LABS: Blood Urea Nitrogen 18 mg/dL (9-20); Calcium 9.9 mg/dL (8.4-10.2); Carbon Dioxide 28 mmol/L (22-32); Chloride 103 mmol/L (98-107); Estimated Glomerular Filt Rate > 60 mL/min (>60); Glucose 230 mg/dL (70-99); HEMOLYSIS 22 (0-50); Potassium 3.9 mmol/L (3.4-5.1); Sodium 141 mmol/L (137-145)
== END ==
PROVIDERS: PCP Family Medicine; Referring Provider Family Medicine; Visit Provider Family Medicine
DX: E11.65 Type 2 diabetes mellitus with hyperglycemia (principal); Z79.4 Long term (current) use of insulin
CPT/HCPCS: 36415; 80048; 83036